=== PATIENT | female | born 1940 | race Caucasian/White ===

== ENCOUNTER 2016-04-30 07:30 | Day surgery (SDC) | payer OTHER, BC ==
[~2016-04-30] VITALS: Ht 162.6 cm; Wt 72.7 kg
[~2016-04-30 07:30] MED LIST: ADULT LOW DOSE81 M1 PO; BENADRYL50 MG PO; CALCIUM + D3 E1 EACH PO; CALCIUM 600 MG1 EAC1 PO; CIPRO500 MG PO; CLARITIN10 M3 PO; DECADRON1 MG PO; DIPHENOXYLATE/1 EACH PO; EVISTA60 MG PO; IBUPROFEN800 MG PO; KLOR-CON 1010 ME1 PO; LIDOPRIL 2.5%-1 EACH TP; MAGOX 400400 MG PO; NORCO 5/3251 TABLET PO; NORVASC5 MG PO; POTASSIUM CHLO10 ME4 PO; PRAVACHOL40 MG PO; PRILOSEC20 MG PO; PYRIDIUM100 MG PO; TRIAMTERENE-HC1 EACH PO; TYLENOL REGULA325 MG PO; VITAMIN D33000 UNIT PO; ZANTAC150 MG PO; ZOFRAN4 MG PO
[2016-04-30 08:14] VITALS: BP 120/69
[2016-04-30 17:50] VITALS: BP 138/85
[2016-04-30 18:50] VITALS: BP 137/72
== END 2016-04-30 18:50 | disposition home or self-care (01) ==
LOC: SDC 07:30 → NUC 09:30 → SDC 09:30
DX: C50.912 Malignant neoplasm of unspecified site of left female breast (principal); I10 Essential (primary) hypertension
CPT/HCPCS: 78195; 78999; 88305; 88307; A9541; J0131; J0330; J0690; J1100; J1170; J2405; J2765; J3010; S0020

== ENCOUNTER → 2017-09-17 | Outpatient (CLI) | payer OTHER, BC ==
[~2017-09-17] MED LIST changes: +VITAMIN D32000 UNI1 PO
== END | disposition home or self-care (01) ==
LOC: AMB 08:24
PROC: 02PYX3Z Removal of Infusion Device from Great Vessel, External Approach (ICD-10-PCS; principal; 2017-09-17)
PROC: 0JPT3WZ Removal of Totally Implantable Vascular Access Device from Trunk Subcutaneous Tissue and Fascia, Percutaneous Approach (ICD-10-PCS; principal; 2017-09-17)
DX: Z45.2 Encounter for adjustment and management of vascular access device (principal); Z92.21 Personal history of antineoplastic chemotherapy; Z85.3 Personal history of malignant neoplasm of breast